=== PATIENT | male | born 1960 | race Caucasian/White ===

== ENCOUNTER 2019-04-08 18:45 | Emergency (ER) | payer BC ==
[~2019-04-08] VITALS: Ht 185.4 cm; Wt 116.0 kg
[2019-04-08 20:19] VITALS: BP 112/66
== END 2019-04-08 20:32 | disposition home or self-care (01) | DRG 563 ==
LOC: ED 18:45
DX: S83.005A Unspecified dislocation of left patella, initial encounter (principal); X50.0XXA Overexertion from strenuous movement or load, initial encounter; Y93.89 Activity, other specified
CPT/HCPCS: L1830